=== PATIENT | female | born 1985 | race Caucasian/White ===

== ENCOUNTER 2017-01-08 20:45 | Emergency (ER) | payer OTHER ==
[2017-01-08 20:46] VITALS: BP 128/87
[2017-01-08] MEDS ORDERED: Tetracaine 0.5% 2 ML Bottle EYERT ONE (21:05)
--- NOTE | 2017-01-08 21:05 | EDM.PDOC ---
ED HPI EYE COMPLAINT - General Chief Complaint: Eye Problems Stated Complaint: Eye injury Time Seen by Provider: 01/08/17 21:00 Source: Reports: Patient, Old records ([facility] chart /EMR) History Limitations: Reports: No limitations - History of Present Illness INITIAL COMMENTS - FREE TEXT/NARRATIVE: The patient was brought to the emergency room via private automobile by her for evaluation of persistent 7/10 right eye pain secondary to a Worker' s Compensation injury, which occurred at about 14:00 hours this afternoon. She was emptying the garbage at work when the wind blew something into her right eye with persistent foreign body sensation, however no evidence of diplopia, visual changes, or other complaints or injury. She has not injured this eye in the past. The patient was not wearing her glasses at the time. She did rinse out her eye several times with saline since the above injury, however no other medications to this point. The patient also denies any recent fever, cough, wheezing, dyspnea, etc.. Her last tetanus booster was given on 09/25/12 with DTaP given in this facility at that time. Symptom Onset Date: 01/08/17 Symptom Onset Time: 14:00 Location: right eye Quality: Reports: Ache, Burning Severity: moderate Improves with: Reports: None Worsens with: Reports: None Context: Reports: other (As above) Associated Symptoms (Eye): Reports: pain, burning, FB sensation. 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 [No Known Home Meds] 02/02/15 01/08/17 Past Medical History HEENT History: Reports: Impaired vision, Other (see below). Denies: Allergic rhinitis, Glaucoma, Hard of hearing, Macular degeneration, Otitis media, Retinal detachment, Sinusitis Other HEENT History: Wears glasses for driving Cardiovascular History: Reports: None. Denies: Afib, Aneurysm, Arrhythmia, Blood clots/VTE/DVT, CAD, Heart murmur, High cholesterol, Hypertension, NH, PVD , Syncope Respiratory History: Reports: Intubation, previous. Denies: Asthma, COPD, Intubation, difficult, PE, Pneumothorax, Sleep apnea, TB Gastrointestinal History: Reports: None. Denies: Celiac disease, Cholelithiasis , Chronic constipation, Chronic diarrhea, Fecal incontinence, Gastritis, GERD, GI bleed, Hepatitis, Hiatal hernia, Inflammatory bowel disease, Irritable bowel syndrome, Jaundice, Pancreatitis, PUD Genitourinary History: Reports: None. 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 Denies: Dysfunctional uterine bleeding, Endometriosis, Fibroids : 5 Para: 3 (Full term without complications during pregnancies or deliveries) LMP (Approximate): 1 Week Musculoskeletal History: Reports: Arthritis, Back pain, chronic, Neck pain, chronic, Osteoarthritis. Denies: Amputation, Fracture, Gout, RA, SLE Neurological History: Reports: None. Denies: Cerebral aneurysms, Concussion, CVA, Headaches, chronic, Head trauma, Migraines, Seizure, TIA Psychiatric History: Reports: None. Denies: Abuse, victim of, ADD, ADHD, Addiction, Anxiety, Depression, Psych Hospitalization(s), PTSD, Suicide attempt , Suicidal ideation Endocrine/Metabolic History: Reports: None. Denies: Diabetes, type I, Diabetes , type II, Hypothyroidism, IDDM Hematologic History: Reports: None. Denies: Anemia, Blood transfusion(s), Iron deficiency Immunologic History: Reports: None. Denies: AIDS, HIV, SLE Oncologic (Cancer) History: Reports: None. Denies: Basal cell carcinoma, Cervix , Hodgkin's Lymphoma, Leukemia, Lymphoma, Malignant melanoma, Non-Hodgkin's Lymphoma, Squamous cell carcinoma Dermatologic History: Reports: None. Denies: Eczema, Psoriasis - Infectious Disease History Infectious Disease History: Reports: Chicken pox. Denies: C-difficile, Measles , Meningitis, Mononucleosis, MRSA, Mumps, Pertussis (whooping cough), Rheumatic Fever, Rubella, Scarlet fever, Shingles, TB, VRE - Past Surgical History Head Surgeries/Procedures: Reports: None HEENT Surgical History: Reports: Oral surgery, Other (see below). Denies: Adenoidectomy, Eye surgery, Laser surgery, LASIK, Myringotomy w tube(s), Naso- sinus surgery, Tonsillectomy Other HEENT Surgeries/Procedures: Multiple teeth extractions Cardiovascular Surgical History: Reports: None. Denies: Varicose, Vascular surgery Respiratory Surgical History: Reports: None. Denies: Lung Biopsies, Thoracentesis GI Surgical History: Reports: None. Denies: Appendectomy, Cholecystectomy, Colonoscopy, EGD, Hernia, abdominal, Hernia, inguinal, Hernia repair/other, Sanjeev fundoplication Female Surgical History: Reports: D&C, Tubal ligation, Other (see below). Denies: Breast biopsy Other Female Surgeries/Procedures: bilateral tubal ligation in 2009, D&C for one SAB during first trimester in 2006 with other SAB in first trimester not requiring any procedures Endocrine Surgical History: Reports: None. Denies: Thyroid biopsy Neurological Surgical History: Reports: None. Denies: C-Spine, Laminectomy, Lumbar spine, Spinal fusion, Vertebroplasty Musculoskeletal Surgical History: Reports: Arthroscopic knee, Arthroscopic procedure, Other (see below). Denies: Carpal tunnel, Ganglion cyst, Joint replacement, ORIF, Shoulder surgery Other Musculoskeletal Surgeries/Procedures:: Arthroscopic left knee surgery on Oncologic Surgical History: Reports: None. Denies: Biopsy of breast Dermatological Surgical History: Reports: None - Past Imaging History Past Imaging History: Reports: MRI (Left knee on 09/30/15), Ultrasound (Physical ultrasound on 01/05/14) Social & Family History - Tobacco Use Tobacco Use Within Last Twelve Months: Cigarettes Years of Tobacco use: 14 Packs/Tins Daily: 0.3 (Started at age 17 with maximum use of one half pack per day) Smoking Cessation Information Provided To Patient: Yes Second Hand Smoke Exposure: No Second Hand Smoke Education Provided: No - Caffeine Use Caffeine Use: Reports: Soda (2 sodas per day). Denies: Coffee, Energy drinks, Tea - Alcohol Use Alcohol Use History: Yes Days Per Week of Alcohol Use: 1 (No previous DWIs, problems with alcohol abuse, etc.) Number of Drinks Per Day: 4 (Usually beer) Total Drinks Per Week: 4 Alcohol Use in Last Twelve Months: Yes Alcohol Use Frequency: Socially - Recreational Drug Use Recreational Drug Use: No Drug Use in Last 12 Months: No Recreational Drug Type: Denies: Amphetamines (Speed), Cocaine, Heroin, Inhalants (Glues, Solvents, Aerosols), LSD (Acid), Marijuana/Hashish, Methamphetamine, Morphine - Living Situation & Occupation Living situation: Reports: (2005, 3 children), with family Occupation: employed 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 Denies: fever, chills, weakness, fatigue , night sweats, diaphoresis HEENT: Reports: Eye pain. Denies: No symptoms, Contact Lenses, Dental pain ( Despite current caries), Ear discharge, Ear pain, Glasses, Hearing loss, Rhinitis, Sinus problem, Throat pain, Throat swelling, Vertigo, Vision change Respiratory: Reports: No Symptoms. Denies: Shortness of Breath, Wheezing, Pleuritic Chest Pain, Cough Cardiovascular: Reports: No symptoms. Denies: Chest pain, Blood pressure problem, Dyspnea on exertion, Edema, Lightheadedness, Palpitations, Syncope Endocrine: Reports: no symptoms GI/Abdominal: Reports: No symptoms. Denies: Abdominal pain, Anorexia, Black stool, Bloody stool, Constipation, Diarrhea, Nausea, Vomiting : Reports: no symptoms. Denies: dysuria, flank pain, frequency, hematuria, irregular menses, pain, urgency Musculoskeletal: Reports: no symptoms. Denies: neck pain, shoulder pain, arm pain, back pain, leg pain Skin: Reports: no symptoms. Denies: diaphoresis, bruising, rash, wound Neurological: Reports: No Symptoms. Denies: Confusion, Dizziness, Headache Psychiatric: Reports: No symptoms. Denies: Agitation, Anxiety, Confusion, Depression Hematologic/Lymphatic: Reports: no symptoms Immunologic: Reports: no symptoms ED EXAM GENERAL W FULL EYE - Physical Exam Exam: See Below Exam Limited By: No limitations General Appearance: alert, WD/WN, no apparent distress Eye Exam: bilateral eye: EOMI, normal fundi, normal inspection (No nystagmus, negative fluorescein test), PERRL Visual acuity (R) 20/: 25 (She normally wears glasses for driving) Visual acuity (L) 20/: 25 With Correction: No Eyelids: right: lid everted for exam, bilateral: normal appearance Conjunctiva & Sclera: bilateral: normal appearance Cornea Exam: right: examined with flourescein, bilateral: normal appearance Extraocular Movements: bilateral: intact Pupils: normal accommodation Pupillary Size: bilateral: 5 mm Pupillary Reaction: bilateral: brisk Anterior Chamber: bilateral: normal appearance Posterior Chamber: bilateral: normal funduscopic Ears: normal external exam, normal canal, hearing grossly normal, normal TMs Nose: normal inspection, normal mucosa, no blood Throat/Mouth: Normal inspection, Normal lips, Normal gums, Normal oropharynx, Normal voice, No airway compromise. No: Normal teeth (Multiple missing teeth and caries including broken into the gumline but no acute abscesses or drainage) Head: atraumatic, normocephalic. No: facial swelling, facial tenderness, sinus tenderness Neck: normal inspection, supple, non-tender, full range of motion. No: lymphadenopathy (L), lymphadenopathy (R), thyromegaly Respiratory/Chest: no respiratory distress, lungs clear, normal breath sounds, no accessory muscle use, chest non-tender. No: pleural rub, retractions Cardiovascular: normal peripheral pulses, regular rate, rhythm, no edema, no gallop, no JVD, no murmur, no rub. No: gallop/S3, gallop/S4, friction rub GI/Abdominal: normal bowel sounds, soft, non tender, no organomegaly, no distention, no abnormal bruit, no mass. No: guarding (Female) Exam: Deferred Rectal (Female) Exam: Deferred Back Exam: normal inspection, full range of motion. No: CVA tenderness (L), CVA tenderness (R), muscle spasm Extremities: normal inspection, normal range of motion, non-tender, no pedal edema, normal capillary refill Neurological: alert, oriented, CN II-XII intact, normal cognition, normal gait, no motor/sensory deficits Psychiatric: normal affect, normal mood Skin Exam: Warm, Dry, Intact, Normal color, No rash. No: Diaphoretic, Wound/ incision Lymphatic: no adenopathy ED EYE w/ Add Procedure - Eye Procedure Alcaine Drops Administered: Yes Eye FB Removal: no removal w/ cotton swab, no removal w/ needle, no other Eye Irrigated w/ Saline (ccs): 30 Course - Vital Signs Last Recorded V/S: Last Vital Signs Temp 36.7 C 01/08/17 20:46 Pulse 81 01/08/17 20:46 Resp 18 01/08/17 20:46 BP 128/87 01/08/17 20:46 Pulse Ox 100 01/08/17 20:46 Vital Signs - 24 hr 01/08/17 20:46 Temperature [ 36.7 C Oral] Pulse, 81 Peripheral [ Right Pulse Oximetry] Respiratory 18 Rate Blood Pressure 128/87 [Left Upper Arm ] O2 Sat by Pulse 100 Oximetry - Orders/Labs/Meds Orders: Active Orders 24 hr Category Date Time Status Obtain Past Medical Record [OM.PC] Routine Oth 01/08/17 21:05 Active Labs: None Meds: Medications Discontinued Medications Generic Name Dose Route Start Last Admin Trade Name Beth PRN Reason Stop Dose Admin Balanced Salt Solution 30 ml 01/08/17 21:06 Eye Stream Eye Rinse EYERT 01/08/17 21:07 ONETIME ONE Tetracaine 1 ml 01/08/17 21:05 Pontocaine 0.5% Ophth Drops EYERT 01/08/17 21:06 ASDIRECTED ONE - Radiology Interpretation Free Text/Narrative:: None Departure - Departure Time of Disposition: 21:45 Disposition: Home, Self-Care 01 Condition: good Clinical Impression: Foreign body, Tobacco abuse counseling, Caries Osteoarthritis Qualifiers: Osteoarthritis location: multiple joints Osteoarthritis type: primary Qualified Code(s): M15.0 - Primary generalized (osteo)arthritis Instructions: Eye Foreign Body, [id number] Forms: ED Department Discharge, Return to Work/School Form Additional Instructions: 1. Followup with your regular provider in 3-5 days as directed/as needed, if no significant improvement in symptoms. 2. OTC artificial tears 2 drops in the right eye every 2 hours as needed 3. Tylenol 650 mg by mouth every 4 hours and/or OTC ibuprofen 2-3 tabs by mouth every 6 hours with food as directed./needed. 4. Stop all tobacco use ALVA as directed/per provided information and consider contacting Quit LIne, etc.. 5. Followup with your dentist ALVA as discussed 6. Listerine gargles at least 4 times a day, i.e., after each meal and at bedtime, until otherwise directed by your dentist or regular provider. May use additional Orajel and/or Chloraseptic lozenges as needed per labeled instructions. Soft diet, room temperature fluids, etc. as directed until symptoms resolve. Ice packs maybe applied to the facial and jaw regions as needed for swelling as directed. - Problem List & Annotations (1) Foreign body SNOMED Code(s): 322811193 Code(s): BFB1285 - Status: Acute Priority: High Onset Date: 01/08/17 Annotation/Comment:: Possible foreign body of the right eye by clinical history, however foreign body not found either by eye irrigation by the patient herself prior to arrival or during today's exam. Her Td AP is up-to-date as above. Symptomatic relief as per discharge instructions. Work excuse provided with Workmen's Compensation forms also completed (2) Caries SNOMED Code(s): 69212173 Code(s): K02.9 - DENTAL CARIES, UNSPECIFIED Status: Chronic Priority: Medium Annotation/Comment:: Followup with dentist ALVA as discussed (3) Osteoarthritis SNOMED Code(s): 397073545 Code(s): M19.90 - UNSPECIFIED OSTEOARTHRITIS, UNSPECIFIED SITE Status: Chronic Priority: Medium Annotation/Comment:: Stable by history Qualifiers: Osteoarthritis location: multiple joints Osteoarthritis type: primary Qualified Code(s): M15.0 - Primary generalized (osteo)arthritis (4) Tobacco abuse counseling SNOMED Code(s): 237618218, 550105610, 577093509 Code(s): Z71.6 - TOBACCO ABUSE COUNSELING Status: Chronic Priority: Medium Annotation/Comment:: Tobacco cessation strongly encouraged, although the patient did not appear interested in stopping smoking - Problem List Review Problem List Initiated/Reviewed/Updated: Yes - My Orders Last 24 Hours: My Active Orders 01/08/17 21:05 Obtain Past Medical Record [OM.PC] Routine - Assessment/Plan Last 24 Hours: My Active Orders 01/08/17 21:05 Obtain Past Medical Record [OM.PC] Routine Assessment:: As above Plan: As above. Extensive precautions were given to the patient, who is in agreement with the treatment plan. See Patient Instructions for further treatment and plan.
[2017-01-08] MEDS ORDERED: Balanced Salt Solution Ophth Irrig 30 ML Bottle EYERT ONE (21:06)
== END 2017-01-08 21:45 | disposition home or self-care (01) ==
LOC: LL.ED 20:45
DX: H57.11 Ocular pain, right eye (principal); K02.9 Dental caries, unspecified; M15.0 Primary generalized (osteo)arthritis; Z71.6 Tobacco abuse counseling; Z98.890 Other specified postprocedural states; Z98.51 Tubal ligation status
CPT/HCPCS: 65220; 99284